=== PATIENT | female | born 1965 | race Caucasian/White ===

== ENCOUNTER 2017-03-29 19:44 | Emergency (ER) | payer BC ==
[2017-03-29 20:31] VITALS: BP 128/77
[2017-03-29] MEDS ORDERED: Ketorolac INJ* 60 MG/2 ML VIAL IM ONE (20:59)
[2017-03-29] MEDS ORDERED: Sulfamethox/Trimethoprim DS 800/160* TAB PO ONE (21:18)
[2017-03-29] MEDS ORDERED: Cephalexin CAP* 500 MG PO ONE (21:18)
--- NOTE | 2017-03-29 21:18 | UC ---
Elbow Pain - HPI Summary HPI Summary: 51 y/o female presents to the urgent care c/o left elbow pain, redness and swelling since this afternoon at 1pm. She doesn't recall any insect bite or injury. Pain is 9/10, specially with movement. Pt has HX of MRSA. Pt states she is having trouble removing wedding band on her left hand. Pt denies fever, SOB, chest pain, N/V/D, urinary symptoms or abdominal pain. - History of Current Complaint Chief Complaint: UCUpperExtremity Stated Complaint: LEFT ELBOW SWELLING/RED Time Seen by Provider: 03/29/17 20:44 Hx Obtained From: Patient Hx Last Menstrual Period: unknown ?: No Onset/Duration: Hours, Still Present Severity Initially: Mild Severity Currently: Severe Pain Intensity: 9 Pain Scale Used: 0-10 Numeric Location Of Pain: Is Discrete @ - LF elbow Character: Unable to Describe Aggravating Factor(s): Movement Alleviating Factor(s): Ice Associated Signs And Symptoms: Positive: Swelling, Redness - Allergies/Home Medications Allergies/Adverse Reactions: Allergies Allergy/AdvReac Type Severity Reaction Status Date / Time Hydrocodone [From Vicodin] Allergy Intermediate Itching Verified 03/29/17 20:21 Oxycodone [From Percocet] Allergy Intermediate Itching Verified 03/29/17 20:21 Home Medications: Home Medications Fluticasone-Salmeterol 500-50* [Advair Diskus 500-50*] 1 puff INH BID 03/29/17 [ History Confirmed 03/29/17] PMH/Surg Hx/FS Hx/Imm Hx Respiratory History: Asthma Psychological History: Anxiety - Surgical History Surgical History: Yes Surgery Procedure, Year, and Place: SINUS SURGERY- TWICE, BILATERAL CTR,[facility]. ENDOMETRIAL ABLATION MARCH 2014. bilateral carpal tunnel. HYSTERECTOMY - Family History Known Family History: Positive: Cardiac Disease - Social History Occupation: Employed Full-time Lives: With Family Alcohol Use: Daily Alcohol Amount: wine daily Substance Use Type: None Smoking Status (MU): Former Smoker When Did the Patient Quit Smoking/Using Tobacco: 30 YEARS AGO - Immunization History Most Recent Influenza Vaccination: 2012 Review of Systems Constitutional: Negative Skin: Rash - LF elbow with redness , pain and swelling on left Eyes: Negative ENT: Negative Respiratory: Negative Cardiovascular: Negative Gastrointestinal: Negative Genitourinary: Negative Motor: Negative Neurovascular: Negative Musculoskeletal: Negative Neurological: Negative Psychological: Negative All Other Systems Reviewed And Are Negative: Yes Physical Exam Triage Information Reviewed: Yes Appearance: Well-Appearing, Well-Nourished, Pain Distress - mild, Obese Vital Signs: Initial Vital Signs Temp 98.6 F 03/29/17 20:25 Pulse 117 03/29/17 20:25 Resp 20 03/29/17 20:25 BP 128/77 03/29/17 20:25 Pulse Ox 96 03/29/17 20:25 Vital Signs Reviewed: Yes Eye Exam: Normal Eyes: Positive: Conjunctiva Clear - PERRLA, EOMI fundi grossly normal ENT Exam: Normal ENT: Positive: Normal ENT inspection, Hearing grossly normal, Pharynx normal, TMs normal Dental Exam: Normal Neck exam: Normal Neck: Positive: Supple, Nontender, No Lymphadenopathy Respiratory Exam: Normal Respiratory: Positive: Chest non-tender, Lungs clear, Normal breath sounds Cardiovascular Exam: Normal Cardiovascular: Positive: RRR, No Murmur, Pulses Normal, Brisk Capillary Refill Abdominal Exam: Normal Abdomen Description: Positive: Nontender, No Organomegaly, Soft. Negative: CVA Tenderness (R), CVA Tenderness (L) Bowel Sounds: Positive: Present Musculoskeletal Exam: Normal Musculoskeletal: Positive: Strength Intact, ROM Intact, ROM Limited @ - LF elbow due to pain, Edema @ - Left elbow with macular erythema with indistict borders, about 5cm x 5cm in size, tender to palpation, warmth to touch and edema. decrease ROM due to pain. Positive pulses, sensation and capillary refill. lef hand with mild swelling. Neurological Exam: Normal Psychological Exam: Normal Skin Exam: Normal Skin: Positive: rashes - macular erythema on left elbow. Elbow Pain Course/Dx - Course Course Of Treatment: 51 y/o female presents to the urgent care c/o left elbow pain, redness and swelling since this afternoon at 1pm. She doesn't recall any insect bite or injury. Pain is 9/10, specially with movement. Pt has HX of MRSA. Pt states she is having trouble removing wedding band on her left hand. Pt denies fever, SOB, chest pain, N/V/D, urinary symptoms or abdominal pain. Hx obtained. PE abnormal findings:Left elbow with macular erythema with indistict borders, about 5cm x 5cm in size, tender to palpation, warmth to touch and edema. decrease ROM due to pain. Positive pulses, sensation and capillary refill. lef hand with mild swelling. Toradol 60mg PO IM order. IM inj given by the nurse. Pt tolerated well IM inj. pain decrease 03/26. DX Celllulitis vs Olecranon Bursitis. Pt Rx Bactrim to cover for MRSA since Pt w/ Hx of MRRA. and also Rx keflex. 1 tab PO of eaach ABX given at urgent care since Pharmacy is close at this time. Pt tolerated well medication. Pt d/c home and advised to f/u with Dr Gutiérrez tomorrow morning for further management and treatment. Pt understood and agreed. Pt also advised if Pain and swelling increased and fever with rash increasing in size or streaks of redness develops despite taking Meds to immediately go to the Ed. Pt undrestood and agreed and left the clinic ambulating. - Differential Dx/Diagnosis Differential Diagnosis/HQI/PQRI: Bursitis, Cellulitis, Joint Effusion, Puncture Wound, Tendonitis Provider Diagnoses: 1-Acute left elbow pain. 2-Cellulitis vs Olegranon Bursitis - Physician Notification/Consults Discussed Patient Care With: Joel Gilliland - Dr Gilliland agreed w/ Pt care and treatment Discharge - Discharge Plan Condition: Stable Disposition: HOME Prescriptions: Acetaminophen TAB* [Tylenol TAB*] 650 mg PO Q4H PRN #30 tab PRN Reason: Pain Cephalexin CAP* [Keflex CAP*] 500 mg PO TID #21 cap Sulfamethox/Trimethoprim DS* [Bactrim DS 800/160 TAB*] 1 tab PO BID #20 tab Patient Education Materials: Cellulitis (ED), Elbow Bursitis (ED) Forms: *Work Release Referrals: Froilan Gutiérrez MD [Medical Doctor] - 1 Day Eun Levy MD [Primary Care Provider] - Additional Instructions: Please take medications as instructed and finish the full course of treatment to avoid recurrent infection. If you do not improve or if symptoms worsen despite taking the antibiotic and high fever develops please go to the Ed immediately, Please f/u with Orthopedic DR Gutiérrez tomorrow for further evaluation and treatment.
== END 2017-03-29 21:30 | disposition home or self-care (01) ==
LOC: UCCORT 19:44
DX: M25.522 Pain in left elbow (principal); F41.9 Anxiety disorder, unspecified; J45.909 Unspecified asthma, uncomplicated; Z87.891 Personal history of nicotine dependence
CPT/HCPCS: 96372; 99212; A9270-GY; G0463; J1885